=== PATIENT | male | born 1940 | race Caucasian/White ===

== ENCOUNTER → 2017-10-05 | Outpatient (CLI) | payer MEDICARE ==
[~2017-10-05] MED LIST: ACET500 PO; ALBU90OI INH; ALLO300 PO; ATOR40TA PO; CHOL10002 PO; CINA30; DOCU100 PO; DOXA2 PO; FURO40 PO; Ferrous Glucon325 M2 PO; HYDMOR2 PO; INSULANPEN; LAVAP17G PO; LEVFLO500 PO; METO25 PO; Novolin R100 UNIT/M SC; POTCHL20ER PO; SEVE800 PO
[2017-10-05 10:06] LABS: BASOPHILS PERCENT AUTO 2 % (0-2); EOSINOPHILS ABSOLUTE AUTO 0.35 K/mm3 (0.00-0.68); EOSINOPHILS PERCENT AUTO 2 % (0-6); Hemoglobin 8.2 g/dL (13.5-17.5); IMMATURE GRAN ABSOLUTE AUTO 0.69 K/mm3 (0.00-0.10); IMMATURE GRAN PERCENT AUTO 5 % (0-1); LYMPHOCYTES ABSOLUTE AUTO 0.81 K/mm3 (0.84-5.20); LYMPHOCYTES PERCENT AUTO 6 % (21-46); MONOCYTES ABSOLUTE AUTO 0.97 K/mm3 (0.16-1.47); MONOCYTES PERCENT AUTO 7 % (4-13); Mean Corpuscular HGB 28.1 pg (26.0-34.0); Mean Corpuscular HGB Conc 31.5 g/dL (31.5-36.5); Mean Corpuscular Volume 89 fL (80-100); Mean Platelet Volume 10.2 fL (9.1-12.4); NEUTROPHILS ABSOLUTE AUTO 11.36 K/mm3 (1.96-9.15); NEUTROPHILS PERCENT AUTO 78 % (41-73); Platelet Count 298 K/mm3 (150-400); RDW Coefficient Variation 17.2 % (11.7-14.2); RDW Standard Deviation 55.5 fL (35.1-46.3); Red Blood Cell Count 2.92 M/mm3 (4.30-5.90); White Blood Cell Count 14.48 K/mm3 (4.00-11.30)
== END ==
LOC: LAB DAV 09:58
PROVIDERS: Internal Medicine
DX: N18.6 End stage renal disease (principal); D63.1 Anemia in chronic kidney disease
CPT/HCPCS: 85025

== ENCOUNTER → 2017-10-14 | Outpatient (CLI) | payer MEDICARE ==
[2017-10-14 07:43] LABS: BASOPHILS ABSOLUTE AUTO 0.26 K/mm3 (0.00-0.23); BASOPHILS PERCENT AUTO 2 % (0-2); EOSINOPHILS ABSOLUTE AUTO 0.16 K/mm3 (0.00-0.68); EOSINOPHILS PERCENT AUTO 1 % (0-6); Hematocrit 27.6 % (37.0-53.0); Hemoglobin 8.5 g/dL (13.5-17.5); IMMATURE GRAN ABSOLUTE AUTO 0.48 K/mm3 (0.00-0.10); IMMATURE GRAN PERCENT AUTO 3 % (0-1); LYMPHOCYTES ABSOLUTE AUTO 0.75 K/mm3 (0.84-5.20); LYMPHOCYTES PERCENT AUTO 5 % (21-46); MONOCYTES ABSOLUTE AUTO 1.35 K/mm3 (0.16-1.47); MONOCYTES PERCENT AUTO 10 % (4-13); Mean Corpuscular HGB 27.2 pg (26.0-34.0); Mean Corpuscular HGB Conc 30.8 g/dL (31.5-36.5); Mean Corpuscular Volume 89 fL (80-100); Mean Platelet Volume 9.7 fL (9.1-12.4); NEUTROPHILS ABSOLUTE AUTO 11.01 K/mm3 (1.96-9.15); NEUTROPHILS PERCENT AUTO 79 % (41-73); Platelet Count 306 K/mm3 (150-400); RDW Coefficient Variation 16.6 % (11.7-14.2); RDW Standard Deviation 53.6 fL (35.1-46.3); Red Blood Cell Count 3.12 M/mm3 (4.30-5.90); White Blood Cell Count 14.01 K/mm3 (4.00-11.30)
== END | disposition home or self-care (01) ==
LOC: LAB SHORT 07:20
PROVIDERS: Internal Medicine
DX: N18.6 End stage renal disease (principal)
CPT/HCPCS: 85025

== ENCOUNTER → 2017-11-18 | Outpatient (CLI) | payer MEDICARE ==
[2017-11-18 09:11] LABS: BASOPHILS ABSOLUTE AUTO 0.33 K/mm3 (0.00-0.23); BASOPHILS PERCENT AUTO 3 % (0-2); EOSINOPHILS ABSOLUTE AUTO 0.23 K/mm3 (0.00-0.68); EOSINOPHILS PERCENT AUTO 2 % (0-6); Hematocrit 25.9 % (37.0-53.0); Hemoglobin 8.1 g/dL (13.5-17.5); IMMATURE GRAN ABSOLUTE AUTO 0.62 K/mm3 (0.00-0.10); IMMATURE GRAN PERCENT AUTO 5 % (0-1); LYMPHOCYTES ABSOLUTE AUTO 0.65 K/mm3 (0.84-5.20); LYMPHOCYTES PERCENT AUTO 5 % (21-46); MONOCYTES PERCENT AUTO 9 % (4-13); Mean Corpuscular HGB 27.4 pg (26.0-34.0); Mean Corpuscular HGB Conc 31.3 g/dL (31.5-36.5); Mean Corpuscular Volume 88 fL (80-100); Mean Platelet Volume 10.4 fL (9.1-12.4); NEUTROPHILS ABSOLUTE AUTO 9.82 K/mm3 (1.96-9.15); NEUTROPHILS PERCENT AUTO 77 % (41-73); Platelet Count 278 K/mm3 (150-400); RDW Coefficient Variation 16.6 % (11.7-14.2); RDW Standard Deviation 52.5 fL (35.1-46.3); Red Blood Cell Count 2.96 M/mm3 (4.30-5.90); White Blood Cell Count 12.75 K/mm3 (4.00-11.30)
== END ==
LOC: LAB DAV 08:00
PROVIDERS: Internal Medicine
DX: D64.9 Anemia, unspecified (principal)
CPT/HCPCS: 85025

== ENCOUNTER 2019-02-02 21:36 | Observation (INO) | payer MEDICARE ==
[~2019-02-02] VITALS: Ht 170.2 cm; Wt 114.9 kg
[2019-02-02] MEDS ORDERED: Novolin R100 UNIT/M SC (21:47)
--- NOTE | 2019-02-03 13:01 | NUR ---
Initial Visit: Palliative Care Consult for Advanced Care Planning. Pt is A&O and reports 6/10 pain in his left knee and left ankle. He reports current regimen is managing his pain. Pt reports moderate nausea and requests medication. Reported symptom to bedside nurse and bedside nurse administers antinausea medication via IV. Pt denies SOB and anxiety. Engaged in therapeutic discussion regarding advanced care planning. Pt reports living in a mobile home alone and does not practice any voodoo. Pt is not and does not have any children. Pt reports no support if need ever arises for assistance with care. Pt reports at baseline he uses a walker for ambulation and is independent of his ADL's. Engaged in discussion regarding disease process of his end stage renal failure. Educated on disease process and trajectory. Suggested for Pt to have continued discussion with Dr Jensen regarding his disease process in order to plan accordingly. Listened as Pt expressed [facility]. He reports Dr Hernandez has prescribed a medication that he takes daily but has not received this medication today in the hospital. Pt is unable to remember the name of medication. Asked Pt if a friend or neighbor can bring medication to the hospital. He reports he knows of no one who could go to his house. No other concerns reported at this time. Called the [facility] to verify medication Pt takes for his leukemia. [facility] staff reports Pt takes Imatinib 400mg daily. Called Dr Jones regarding Pt's Imatinib and she reports she will place an order. Spoke with hospital pharmacy and discussed the possibility of having medication courried over from [facility]. Pharmacist will explore this possibility. Palliative Care will remain available.
[2019-02-03] MEDS ORDERED: TAMS.4ER PO (13:49)
--- NOTE | 2019-02-03 18:11 | NUR ---
SHIFT SUMMARY: PATIENT ADMIT (OBSERVATION) FROM ED THIS SHIFT. PATIENT A&O; CALM AND COOPERATIVE WITH CARE. PT C/O PAIN IN BILATERAL LOWER EXTREMITIES; MEDICATED FOR PAIN PER EMAR; PT UP c 2-ASSIST TO BSC - STAND-PIVOT. PT EVAL & TREAT. WCTM.
--- NOTE | 2019-02-03 23:58 | NUR ---
02/03/19 2240 PT RECEIVED FROM U--11 VIA WHEELCHAIR INTO ROOM 305. PT ORIENTED TO ROOM AND BED CONTROLS. PTS BED ALARM APPLIED FOR SAFETY.
--- NOTE | 2019-02-04 04:50 | NUR ---
SHIFT SUMMARY: 78 Y/O MALE RESTED COMFORTABLY ALL SHIFT. PT ABLE TO STAND AND PIVOT VIA WALKER AND ONE STANDBY ASSIST TO BSC WHILE VOIDING. PT RATED LEFT ANKLE PAIN 6/10 AND RECEIVED ULTRAM 50MG AT 1929 AND FENTANYL 25MCG AT 2044 WITH RELIEF FELT (NO MORE MEDS REQUIRED ALL NIGHT). PT ALERT AND ORIENTED X 4. PT SCHEDULED FOR DIALYSIS TODAY (LEFT UPPER ARM FISTULA INTACT). PTS BED ALARM APPLIED, BED IN LOW POSITION, CALL LIGHT AT SIDE.
[2019-02-04 09:46] LABS: BASOPHILS ABSOLUTE AUTO 0.02 K/mm3 (0.00-0.23); BASOPHILS PERCENT AUTO 0 % (0-2); EOSINOPHILS ABSOLUTE AUTO 0.15 K/mm3 (0.00-0.68); EOSINOPHILS PERCENT AUTO 2 % (0-6); Hematocrit 31.6 % (37.0-53.0); Hemoglobin 10.2 g/dL (13.5-17.5); IMMATURE GRAN ABSOLUTE AUTO 0.01 K/mm3 (0.00-0.10); IMMATURE GRAN PERCENT AUTO 0 % (0-1); LYMPHOCYTES ABSOLUTE AUTO 0.45 K/mm3 (0.84-5.20); LYMPHOCYTES PERCENT AUTO 7 % (21-46); MONOCYTES ABSOLUTE AUTO 0.58 K/mm3 (0.16-1.47); MONOCYTES PERCENT AUTO 8 % (4-13); Mean Corpuscular HGB 32.2 pg (26.0-34.0); Mean Corpuscular HGB Conc 32.3 g/dL (31.5-36.5); Mean Corpuscular Volume 100 fL (80-100); Mean Platelet Volume 10.4 fL (9.1-12.4); NEUTROPHILS ABSOLUTE AUTO 5.69 K/mm3 (1.96-9.15); NEUTROPHILS PERCENT AUTO 83 % (41-73); Platelet Count 179 K/mm3 (150-400); RDW Coefficient Variation 17.4 % (11.7-14.2); RDW Standard Deviation 64.3 fL (35.1-46.3); Red Blood Cell Count 3.17 M/mm3 (4.30-5.90)
[2019-02-04 10:02] LABS: Albumin, Blood 3.2 g/dL (3.4-5.0); Anion Gap 9 mmol/L (6-16); Blood Urea Nitrogen 55 mg/dL (8-24); Bun/Creatinine Ratio 8.2 (12.0-20.0); CO2, Blood 30 mmol/L (21-32); Calcium, Blood 8.1 mg/dL (8.5-10.1); Chloride, Blood 100 mmol/L (98-108); Creatinine, Blood 6.71 mg/dL (0.60-1.20); Glomerular Filtration Rate 9 (60-); Glucose, Blood 181 mg/dL (70-99); Phosphorus, Blood 3.9 mg/dL (2.5-4.9); Potassium, Blood 3.8 mmol/L (3.5-5.5); Sodium, Blood 139 mmol/L (136-145)
--- NOTE | 2019-02-04 19:02 | NUR ---
SHIFT SUMMARY PT AXO, PLEASANT AND COOPERATIVE WITH CARE. VSS. PT HAD DIALYSIS TODAY. NO OTHER CHANGES. PT REFUSED PAIN MEDICATION THROUGHOUT THE SHIFT STATING THAT THE PAIN WAS TOLERABLE. BED IN LOW POSITION, CALL LIGHT WITHIN REACH. 1 ASSIST WITH GB AND FWW PIVOT TRANSFER TO WHEELCHAIR.
--- NOTE | 2019-02-05 02:40 | NUR ---
PT C/O NAUSEA FEELING WITH ZOFRAN 4MG IVP GIVEN WITH RELIEF FELT. PT USED BSC, TRANSFERRED VIA WALKER VERY SLOWLY AND HAD MUCH DIFFICULTY MOVING SHORT DISTANCE WITHOUT STANDBY ASSIST. PT VOICED HE HAS NO FRIENDS OR FAMILY IN AREA, NO CHILDREN AND IS UNSURE OF HIS ABILITY TO RETURN HOME (MOBILE HOME WITH NINE STEPS INTO ENTRANCE).
--- NOTE | 2019-02-05 03:52 | NUR ---
SHIFT SUMMARY: 78 Y/O OBESE MALE RESTED COMFORTABLY. PTS BED LOW POSITION, CALL LIGHT AT SIDE.
--- NOTE | 2019-02-05 17:22 | NUR ---
SHIFT SUMMARY PT AXO, PLEASANT AND COOPERATIVE WITH CARE. NO ACUTE CHANGES THIS SHIFT. PT STATED THAT HE HAD MILD PAIN BUT REFUSED PAIN MEDICATION. VSS. PT UP TO BSC WITH FWW AND GB. HE CONTINUES TO PIVOT SLOWLY AND WITH DIFFICULTY THOUGH HE REPORTS INCREASING ROM WITH HIS L. ANKLE. BED IN LOW POSITION, CALL LIGHT WITHIN REACH.
--- NOTE | 2019-02-06 04:45 | NUR ---
SHIFT SUMMARY- NO ACUTE CHANGES OVERNIGHT. PT. SLEPT WELL T/O THE SHIFT. COOPERATIVE WITH CARE. DENIED ANY PAIN OR DISCOMFORT LAST NIGHT. DISCHARGE PLANNING STILL PENDING PT. HAS NO SUPPORT AT HOME AND STILL IN NEED OF ASSISTANCE WITH AMBULATION. CALL LIGHT WITHN REACH AND SIDE RAILS UP X2.
--- NOTE | 2019-02-06 09:43 | NUR ---
PT LEFT UNIT FOR DIALYSIS WITH [facility]ORNE AT ABOUT 0910
[2019-02-06 09:56] LABS: Hematocrit 32.3 % (37.0-53.0); Hemoglobin 10.6 g/dL (13.5-17.5)
[2019-02-06 11:07] LABS: Albumin, Blood 3.5 g/dL (3.4-5.0); Anion Gap 11 mmol/L (6-16); Blood Urea Nitrogen 70 mg/dL (8-24); Bun/Creatinine Ratio 8.8 (12.0-20.0); CO2, Blood 25 mmol/L (21-32); Calcium, Blood 8.4 mg/dL (8.5-10.1); Chloride, Blood 98 mmol/L (98-108); Creatinine, Blood 7.92 mg/dL (0.60-1.20); Glomerular Filtration Rate 7 (60-); Glucose, Blood 160 mg/dL (70-99); Phosphorus, Blood 4.8 mg/dL (2.5-4.9); Sodium, Blood 134 mmol/L (136-145)
--- NOTE | 2019-02-06 16:46 | NUR ---
DISCHARGE: DISCHARGE INSTUCTIONS GIVEN TO PT, DEVELOPMENT ANALYST SET UP HOME HEALTH. PT VERBIZIED UNDERSTANDING. PT LEFT UNIT WITH [facility] TRANSPORT IN WHEELCHAIR AT 1640.
== END 2019-02-06 16:40 | disposition home health service (06) ==
LOC: ER 21:36 → ERHOLD 21:37 → MEDS 21:37 → ENPENDDIS 02-06 11:37 → MEDS 02-06 16:40
PROVIDERS: Internal Medicine; ADMIT Hospitalist
DX: M25.572 Pain in left ankle and joints of left foot (principal); M17.0 Bilateral primary osteoarthritis of knee; I12.0 Hypertensive chronic kidney disease with stage 5 chronic kidney disease or end stage renal disease; E11.22 Type 2 diabetes mellitus with diabetic chronic kidney disease; N18.6 End stage renal disease; D63.1 Anemia in chronic kidney disease; N25.81 Secondary hyperparathyroidism of renal origin; E78.5 Hyperlipidemia, unspecified; E66.9 Obesity, unspecified; Z99.2 Dependence on renal dialysis; Z88.8 Allergy status to other drugs, medicaments and biological substances; Z79.899 Other long term (current) drug therapy; Z79.4 Long term (current) use of insulin; Z87.891 Personal history of nicotine dependence; X50.1XXA Overexertion from prolonged static or awkward postures, initial encounter
CPT/HCPCS: 73564; 73610; 80069; 82947; 85014; 85018; 85025; 87081; 96372; 96372-59; 96374; 96375; 96376; 97110; 97162; 97165; 97530; 99285-25; G0257; G0378; J1170; J1644; J2405; J3010

== ENCOUNTER 2019-10-24 09:45 | Day surgery (SDC) | payer OTHER, MEDICARE ==
[~2019-10-24] VITALS: Ht 167.6 cm; Wt 110.0 kg
[~2019-10-24 09:45] MED LIST changes: +AMLO10 PO; +Doxycycline Mo100 M1 PO; +Gleevec400 MG PO; +TAMS.4ER PO
--- NOTE | 2019-10-24 11:58 | NUR ---
1200 PATIENT SITTING UP IN THE BED. FEEDING SELF LUNCH TRAY, NO PAIN NOTED. LEFT UPPER ARM FISTULA WITH POSITIVE BRUIT/THRILL. CLOTH DOTS INTACT TO SHEATH ACCESS SITES, CDI. WILL REMOVE PURSE STRING SUTURES IN ONE HOUR ORDERED BY . VVS. CONTINUE TO AIRAM
--- NOTE | 2019-10-24 12:59 | NUR ---
1255 PATIENT FINISHED WITH MEAL. PIV REMOVED FROM THE RIGHT FOREARM AND COBAN PRESSURE DRESSING APPLIED. CLOTH DOTS AND SUTURES REMOVED FROM BOBBY FISTULAGRAM SITES PROXIMALLY AND DISTALLY. NO BLEEDING NOTED. CLOTH DOTS REPLACED TO THE SITES AND INSTRUCTED PATIENT TO REMOVED TOMORROW. REVIEWD ALL AFTER CARE, MEDICATION RECONCILATION, AND FOLLOW UP CARE WITH THE PATIENT. NO QUESTIONS NOTED. PATIETN DRESSED SELF AND ALL BELONGINS GATHERED AND RETAINED BY PATIENT. PATIENT DISCHARGED HOME BY SELF. NO SEDATION WAS GIVEN TO THE PATIENT DURING THE PROCEDUE AND MD AWARE THAT HE WAS DRIVING HIMSELF HOME.
== END 2019-10-24 13:00 | disposition home or self-care (01) ==
LOC: MHTC 09:45
DX: T82.858A Stenosis of other vascular prosthetic devices, implants and grafts, initial encounter (principal); I13.2 Hypertensive heart and chronic kidney disease with heart failure and with stage 5 chronic kidney disease, or end stage renal disease; I50.9 Heart failure, unspecified; E11.22 Type 2 diabetes mellitus with diabetic chronic kidney disease; N18.6 End stage renal disease; I48.91 Unspecified atrial fibrillation; Y83.2 Surgical operation with anastomosis, bypass or graft as the cause of abnormal reaction of the patient, or of later complication, without mention of misadventure at the time of the procedure; Z87.891 Personal history of nicotine dependence; Z99.2 Dependence on renal dialysis; Z79.4 Long term (current) use of insulin; Z79.899 Other long term (current) drug therapy
CPT/HCPCS: 36902; 36907; 76937; C1725; C1769; C1887; J1644; J7030; Q9967

== ENCOUNTER 2020-08-20 14:36 | Emergency (ER) | payer OTHER, MEDICARE ==
[~2020-08-20] VITALS: Ht 167.6 cm; Wt 104.3 kg
[2020-08-20 15:50] LABS: BASOPHILS ABSOLUTE AUTO 0.02 K/mm3 (0.00-0.23); BASOPHILS PERCENT AUTO 0 % (0-2); EOSINOPHILS ABSOLUTE AUTO 0.16 K/mm3 (0.00-0.68); EOSINOPHILS PERCENT AUTO 3 % (0-6); Hematocrit 30.8 % (37.0-53.0); Hemoglobin 9.8 g/dL (13.5-17.5); IMMATURE GRAN ABSOLUTE AUTO 0.02 K/mm3 (0.00-0.10); IMMATURE GRAN PERCENT AUTO 0 % (0-1); LYMPHOCYTES ABSOLUTE AUTO 0.35 K/mm3 (0.84-5.20); LYMPHOCYTES PERCENT AUTO 6 % (21-46); MONOCYTES ABSOLUTE AUTO 0.38 K/mm3 (0.16-1.47); MONOCYTES PERCENT AUTO 6 % (4-13); Mean Corpuscular HGB 32.7 pg (26.0-34.0); Mean Corpuscular HGB Conc 31.8 g/dL (31.5-36.5); Mean Corpuscular Volume 103 fL (80-100); Mean Platelet Volume 10.6 fL (9.1-12.4); NEUTROPHILS ABSOLUTE AUTO 5.06 K/mm3 (1.96-9.15); NEUTROPHILS PERCENT AUTO 85 % (41-73); Platelet Count 138 K/mm3 (150-400); RDW Coefficient Variation 17.4 % (11.7-14.2); RDW Standard Deviation 65.8 fL (35.1-46.3); White Blood Cell Count 5.99 K/mm3 (4.00-11.30)
[2020-08-20 16:19] LABS: Albumin, Blood 3.6 g/dL (3.4-5.0); Bilirubin, Total 0.6 mg/dL (0.1-1.0); Bun/Creatinine Ratio 9.8 (12.0-20.0); Calcium, Blood 7.5 mg/dL (8.5-10.1); Creatinine, Blood 14.3 mg/dL (0.60-1.20); Globulin, Blood 3.5 g/dL (2.2-4.0); Potassium, Blood 5.2 mmol/L (3.5-5.5); Total Protein, Blood 7.1 g/dL (6.4-8.2)
[2020-08-20 17:12] LABS: Influenza A, PCR Negative (NEGATIVE); Influenza B, PCR Negative (NEGATIVE); Resp Syncytial Virus, PCR Negative (NEGATIVE); SARS-Cov-2 (COVID-19) PCR, MMC Negative (NEGATIVE)
--- NOTE | 2020-08-20 18:38 | NUR ---
PIV REMOVED. CATHETER TIP INTACT. PRESSURE DRESSING APPLIED. REVIEWED DISCHARGE INSTRUCTIONS WITH THE PATIENT AND COPIES GIVEN TO THE PATIENT. [facility] AT 1030 A.M. FOR HIS DIALYSIS TREATMENT. VS STABLE AND PATIETN UP, MONITOR DISCONTINUED AND DRESSED SELF. TO WHEELCHAIR, DRESSING TO PERMACAT CDI. NO BLEEDING NOTED. DISCHARGED HOME, DRIVING SELF.
== END 2020-08-20 17:20 | disposition home or self-care (01) ==
LOC: ER 14:36
PROVIDERS: Physician Assistant
DX: I13.2 Hypertensive heart and chronic kidney disease with heart failure and with stage 5 chronic kidney disease, or end stage renal disease (principal); E11.22 Type 2 diabetes mellitus with diabetic chronic kidney disease; N18.6 End stage renal disease; I50.9 Heart failure, unspecified; E78.5 Hyperlipidemia, unspecified; Z87.891 Personal history of nicotine dependence; Z99.2 Dependence on renal dialysis; Z79.4 Long term (current) use of insulin; Z79.899 Other long term (current) drug therapy; Z20.822 Contact with and (suspected) exposure to COVID-19
CPT/HCPCS: 0241U; 36415; 36558; 36598; 76937; 80053; 85025; 99284; C1750; C1769; C1894; J1644; J7040